=== PATIENT | female | born 1975 | race Caucasian/White ===

== ENCOUNTER 2021-09-18 01:58 | Emergency (ER) | payer OTHER ==
[2021-09-18 02:05] VITALS: BP 120/65; PULSE 81
[2021-09-18] MEDS: Sodium Chloride 0.9% 250 ML IV SCH (02:20)
[2021-09-18] MEDS: diphenhydrAMINE 50 MG/ML SDV IVPUSH ONE (02:21)
[2021-09-18] MEDS: Ondansetron 4 MG/2 ML SDV IVPUSH ONE (02:21)
[2021-09-18] MEDS: Ketorolac 30 MG/ML SDV IVPUSH ONE (02:22)
== END 2021-09-18 02:50 | disposition home or self-care (01) ==
LOC: CC.ED 01:58
DX: G43.909 Migraine, unspecified, not intractable, without status migrainosus (principal); Z88.5 Allergy status to narcotic agent; Z79.899 Other long term (current) drug therapy
CPT/HCPCS: 96374; 96375; 99283; 99283-25; J1200; J1885; J2405; J7050

== ENCOUNTER 2021-09-19 10:57 | Emergency (ER) | payer OTHER ==
[2021-09-19] MEDS: GI Cocktail Oral Solution 30 ML PO ONE (11:11)
[2021-09-19 11:24] VITALS: BP 142/90; PULSE 97
[2021-09-19] MEDS: Aluminum Hydroxide/Magnesium Hydroxide/Simethicone Susp 30 ML Cup ONE (11:24)
[2021-09-19] MEDS: Lidocaine 2% Viscous Solution 15 ML UD ONE (11:24)
[2021-09-19] MEDS: Take Home: Ondansetron 4 MG Tab.DIS, 2 Tab Pack PO ONE (11:39)
[2021-09-19] MEDS: Ondansetron 4 MG Tab.DIS PO ONE (11:39)
[2021-09-19] MEDS: Sucralfate Suspension 1 GM/10 ML Cup PO ONE ×2 (12:08)
== END 2021-09-19 12:35 | disposition home or self-care (01) ==
LOC: CC.ED 10:57
DX: K21.9 Gastro-esophageal reflux disease without esophagitis (principal); R11.0 Nausea; Z88.5 Allergy status to narcotic agent; Z79.899 Other long term (current) drug therapy
CPT/HCPCS: 99283; 99284; A9270-GY

== ENCOUNTER 2023-09-05 09:43 | Observation (INO) | payer OTHER ==
[2023-09-05 09:55] LABS: BASOPHILS ABSOLUTE AUTO 0.01 10^3/uL (0.00-0.50); BASOPHILS PERCENT AUTO 0.1 % (0-1); HEMATOCRIT 40.3 % (37.0-47.0); HEMOGLOBIN 13.3 g/dL (12.0-16.0); IMMATURE GRAN ABSOLUTE AUTO 0.02 10^3/uL (0.00-0.49); IMMATURE GRAN PERCENT AUTO 0.1 % (0.0-4.9); LYMPHOCYTES ABSOLUTE AUTO 0.93 10^3/uL (0.60-5.00); LYMPHOCYTES PERCENT AUTO 5.6 % (24-44); MEAN CORPUSCULAR HEMOGLOBIN 31.4 pg (27.0-32.0); MONOCYTES PERCENT AUTO 4.8 % (0-10); NEUTROPHILS ABSOLUTE AUTO 14.97 x10^3/uL (1.80-8.00); NEUTROPHILS PERCENT AUTO 89.4 % (41-71); PLATELET COUNT,PLT 272 10^3/uL (150-400); RED BLOOD CELL COUNT 4.24 x10^6/uL (4.00-5.50); WHITE BLOOD CELL COUNT,WBC 16.7 10^3/uL (4.0-11.0)
[2023-09-05 10:04] LABS: APPEARANCE,URINE CLEAR (CLEAR); BILIRUBIN,URINE NEGATIVE (NEGATIVE); COLOR,URINE YELLOW (YELLOW); GLUCOSE,URINE NEGATIVE (NEGATIVE); KETONES,URINE TRACE mg/dL (NEGATIVE); LEUKOCYTE ESTERASE,URINE SMALL (NEGATIVE); NITRITE,URINE NEGATIVE (NEGATIVE); OCCULT BLOOD,URINE TRACE-INTACT (NEGATIVE); PROTEIN,URINE 30 mg/dL (NEGATIVE)
[2023-09-05 10:09] LABS: ALANINE AMINOTRANSFERASE,ALT 72 U/L (12-78); ALBUMIN 3.8 g/dL (3.4-5.0); ALKALINE PHOSPHATASE 112 U/L (46-116); ASPARTATE AMNIOTRANSFERASE,AST 51 U/L (15-37); BILIRUBIN TOTAL 0.6 mg/dL (0.0-1.0); BLOOD UREA NITROGEN,BUN 10 mg/dL (7-18); CALCIUM 9.2 mg/dL (8.4-10.1); CARBON DIOXIDE,CO2 27 mmol/L (21-32); CHLORIDE,CL 102 mEq/L (98-106); CREATININE 0.9 mg/dL (0.6-1.0); ESTIMATED GFR 80 mL/min (>=60); GLUCOSE RANDOM 114 mg/dL (75-99); POTASSIUM,K 4.1 mEq/L (3.5-5.0); PROTEIN TOTAL,TP 7.3 g/dL (6.4-8.2); SODIUM,NA 137 mEq/L (136-145)
[2023-09-05] MEDS ORDERED: Acetaminophen 325 MG Tab PO PRN (10:52)
[2023-09-05] MEDS ORDERED: Ondansetron 4 MG/2 ML SDV IV PRN (10:52)
[2023-09-05] MEDS ORDERED: Ibuprofen 200 MG Tab PO PRN (10:56)
[2023-09-05 11:09] LABS: BACTERIA,URINE NOT SEEN /HPF (NOT SEEN); EPITHELIAL CELLS,URINE OCCASIONAL /HPF (NOT SEEN); MUCUS,URINE OCCASIONAL /HPF (NOT SEEN); RBC,URINE NOT SEEN /HPF (0-5); WBC,URINE 0-5 /HPF (0-5)
[2023-09-05 11:16] LABS: MAGNESIUM 2.1 mg/dL (1.8-2.4)
[2023-09-05] MEDS: Ketorolac 30 MG/ML SDV IVPUSH ONE (11:30)
[2023-09-05] MEDS: diphenhydrAMINE 50 MG/ML SDV IVPUSH ONE (11:30)
[2023-09-05] MEDS: Sodium Chloride 0.9% 1,000 ML IV ONE (11:31)
[2023-09-05] MEDS: Acetaminophen 500 MG Tab PO ONE (11:31)
[2023-09-05] MEDS: Metoclopramide 10 MG/2 ML SDV IVPUSH ONE (11:31)
[2023-09-05 11:34] LABS: CORONAVIRUS COVID-19 NAA NEGATIVE (NEGATIVE); INFLUENZA A NAA NEGATIVE (NEGATIVE); INFLUENZA B NAA NEGATIVE (NEGATIVE); RESPIRATORY SYNCYTIAL VIR NAA NEGATIVE (NEGATIVE)
== END 2023-09-05 17:10 | disposition home or self-care (01) ==
LOC: CC.MS 09:43 → CC.FCMC 09:43 → UNDOADMOB 10:46 → CC.MS 10:46
PROVIDERS: ADMIT Family Medicine; ATTEND Physician Assistant Medical
DX: R55 Syncope and collapse (principal); B34.9 Viral infection, unspecified; F32.A Depression, unspecified; K21.9 Gastro-esophageal reflux disease without esophagitis; Z79.899 Other long term (current) drug therapy; Z88.5 Allergy status to narcotic agent
CPT/HCPCS: 0241U; 36415; 70450; 80053; 81001; 83735; 84484; 85025; 86140; 86308; 87430; 93005; 93010; 96361; 96374; 96375; 99236; A9270-GY; G0378; J1200; J1885; J2765; J7030